=== PATIENT | male | born 1945 | race Caucasian/White ===

== ENCOUNTER 2019-12-16 12:07 | Emergency (ER) | payer OTHER, MEDICARE ==
--- NOTE | 2019-12-16 12:13 | PDOC ---
Rapid Medical Evaluation Time Seen by Provider: 12/16/19 12:08 Medical Evaluation: Allergies Allergy/AdvReac Type Severity Reaction Status Date / Time No Known Drug Allergies Allergy Verified 04/13/14 11:33 12/16/19 12:09 I performed a brief in-person evaluation of this patient. 74 y/o male with concern because his defibrillator was beeping for about a minute or minute and a half. He denies any cp, sob, cough, fevers. He states that his battery was checked abou5t 4-5 months ago and was told it was fine. He states he drank about 3 cups of coffee today. Pertinent physical exam findings: nontoxic, no respiratory distress, speaking in full sentences. I have ordered the following: ekg, labs deferred to treating provider Patient to proceed to ED for further evaluation. Discharge Disposition - Diagnosis Cardiac defibrillator in place - Referrals - Patient Instructions - Post Discharge Activity
[2019-12-16 12:14] VITALS: TEMP 98.3; BMI 29.9
--- NOTE | 2019-12-16 12:53 | PDOC ---
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 He reports that he drank 3 cups of coffee earlier followed by a cup of cognac prior to the defibrillator beeping. He's had it for 5-6 years and was told that the battery should last another 8-9 years. Defibrillator has never discharged or beeped. The patient denies any accompanying chest pain, palpitatons, SOB, nausea, vomiting, abdominal pain. ROS: GENERAL/CONSTITUTIONAL: No weakness. HEAD, EYES, EARS, NOSE AND THROAT: No change in vision. CARDIOVASCULAR: No chest pain or shortness of breath. RESPIRATORY: No cough, wheezing, or hemoptysis. GASTROINTESTINAL: No nausea, vomiting ABDOMINAL: No diarrhea, no constipation MUSCULOSKELETAL: No joint or muscle swelling or pain. No neck or back pain. No peripheral edema. NEUROLOGIC: No headache, loss of consciousness, or change in strength/sensation. HEMATOLOGIC/LYMPHATIC: No history of blood clots, no anemia ENDOCRINE: No sweating, no flushing PMH: HTN, HLD, NC s/p 2-3 stents Meds: Metoprolol, spiranolactone, furosemide, ASA Allergies: Denied Social Hx: Former 3 ppd smoker x 45 years, quit 20 years ago PE: GENERAL: Awake, alert, and fully oriented, in no acute distress HEAD: No signs of trauma, normocephalic EYES: PERRL, no blurry vision NECK: Normal ROM, no JVD, LUNGS: Breath sounds equal, clear to auscultation bilaterally. No wheezes, and no crackles HEART: Regular rate and rhythm, normal S1 and S2, no murmurs, rubs or gallops. Capillary refill <3s. ABDOMEN: Soft, nontender, normoactive bowel sounds. No guarding, no rebound. No masses EXTREMITIES: Normal range of motion, no edema. Peripheral pulses palpable in all extremities MDM: This is a 74 y/o male patient presenting because his defibrillator beeped. He was and currently is asymptomatic, denying CP, palpitations, SOB, n/v, diaphoresis. EKG showing possible anterior lateral infarct age unknown. No recent prior EKG for comparison. Put out call to Dr. Wong. - EKG - CBC - CMP - Cardiac profile - CXR 12/16/19 13:[address] Wilson who is the customer accounts advisor who saw the patient last. He is out of office but is trying to find out who patients pigment processor is. Agrees that defibrillator needs to be interrogated. Patient is unsure who is pigment processor is. - Put out a call to Jonn [phone] from [employer] who has interrogated his defibrillator in the past 12/16/19 14:43 Spoke with [employer] rep Jonn who said someone will be here before 5 to interrogate the device 12/16/19 17:16 - Device was interrogated and the rep said there was "RV lead noise." - Spoke with Dr. Jaycob López office. Report that he has not seen the patient in over 5 years but implanted it. He received the interrogation report. Dr. Shook will reach out to the patient tomorrow morning. Patient knows to follow-up with Dr. Shook's office and to see him in 24-48 hours of leaving. 12/16/19 18:01 12/16/19 18:12 Past History - Medical History Allergies/Adverse Reactions: Allergies Allergy/AdvReac Type Severity Reaction Status Date / Time No Known Drug Allergies Allergy Verified 12/16/19 12:13 Home Medications: Ambulatory Orders Aspirin [ASA -] 81 mg PO DAILY 03/28/14 Atorvastatin Ca [Lipitor] 40 mg PO HS #30 tablet 03/30/14 Furosemide [Lasix -] 40 mg PO DAILY #30 tablet 03/30/14 Metoprolol Succinate [Toprol Xl] 50 mg PO DAILY #30 tab.sr.24h 03/30/14 Spironolactone [Aldactone] 25 mg PO DAILY #30 tablet 03/30/14 Anemia: No Asthma: No Cancer: No Cardiac Disorders: Yes CVA: No COPD: No CHF: No Dementia: No Diabetes: No GI Disorders: No Disorders: No HTN: Yes Hypercholesterolemia: No Liver Disease: No Seizures: No Thyroid Disease: No - Surgical History Abdominal Surgery: No Appendectomy: No Cardiac Surgery: Yes Cholecystectomy: No Lung Surgery: (CARDIAC STENT X2 1998) Neurologic Surgery: No Orthopedic Surgery: No - Psycho-Social/Smoking History Smoking History: Former smoker Have you smoked in the past 12 months: No If you are a former smoker, when did you quit?: 15 yrs ago Information on smoking cessation initiated: No 'Breaking Loose' booklet given: 03/28/14 - Substance Abuse Hx (Audit-C & DAST Scrn) How often the patient has a drink containing alcohol: Monthly or less Number of drinks the patient has on a typical day: 1 or 2 How often the patient has six or more drinks on one occasion: Never Score: In Men: 4 or > Positive; In Women: 3 or > Positive: 1 Screen Result (Pos requires Nsg. Audit-10AR): Negative In the last yr the pt used illegal drug/Rx for NonMed reason: No Score: Yes response is considered Positive: 0 Screen Result (Positive result requires Nsg. DAST-10): Negative *Physical Exam - Vital Signs Last Vital Signs Temp Pulse Resp BP Pulse Ox 98.3 F 65 17 135/80 97 12/16/19 12:10 12/16/19 12:10 12/16/19 12:10 12/16/19 12:10 12/16/19 12:10 Heart Score/ECG Review - History History: Slightly suspicious - Electrocardiogram EKG: Non specific repolarization disturbance - Age Age: >/= 65 - Risk Factors Risk Factors Heart Score: Yes Hx Hypercholesterolemia, Yes Hx Hypertension, Yes Smoking History Based on the list above the patient has:: >/=3 risk factors or Hx atherosclerotic disease - Troponin Troponin: </= normal limit - Score Heart Score - Total: 5 - ECG Intrepretation Comment:: 12/16/19 13:52 Normal sinus rhythm, possible left atrial enlargement, anterolateral infarct age undetermined Vent rate 67bpm, NC interval 150ms, QRS duration 124ms, QT/QTc 426/450ms ED Treatment Course - LABORATORY CBC & Chemistry Diagram: 12/16/19 12:26 12/16/19 12:26 Discharge - Discharge Information Problems reviewed: Yes Clinical Impression/Diagnosis: Cardiac defibrillator in place, Palpitations Condition: Stable Disposition: HOME - Follow up/Referral Referrals: Jaycob Shook [Non Staff, Medical] - Call tomorrow - Patient Discharge Instructions Patient Printed Discharge Instructions: DI for Palpitations Additional Instructions: You were seen in the ED today because your defibrillator was making noises. We did a physical exam, and ran labs. [employer] came to interrogate your device. You were given a printout of the interrogation report and a copy was sent to Dr. Shook. You were given a referral to see Dr. Jaycob Shook, the pigment processor who implanted your device. Dr. Shook will call you tomorrow morning. You can also call his office at [phone]. You need to make an appointment to see Dr. Shook within the next 48 hours. Please return to the ED with and new or worsening symptoms. - Post Discharge Activity
[2019-12-16 13:13] LABS: BASO % 0.7 % (0-2.0); EOS % 1.1 % (0-4.5); HEMATOCRIT 48.3 % (35.4-49); HEMOGLOBIN 15.5 GM/dL (11.7-16.9); LYMPH % 12.3 % (8-40); MCH 28.9 pg (25.7-33.7); MCHC 32.1 g/dl (32.0-35.9); MEAN CELL VOLUME 90.1 fl (80-96); MEAN PLT VOLUME 8.3 fl (7.5-11.1); MONO % 5.1 % (3.8-10.2); NEUT % 80.8 % (42.8-82.8); PLATELET COUNT 184 K/MM3 (134-434); RBC 5.36 M/mm3 (4.00-5.60); RDW 15.1 % (11.9-15.9); WHITE BLOOD COUNT 11.9 K/mm3 (4.0-10.0)
[2019-12-16 13:25] LABS: INR 1.07 (0.83-1.09); PROTHROMBIN TIME (PATIENT) 12.6 SEC (9.7-13.0)
[2019-12-16 13:28] LABS: ACTIVATED PTT 32.1 SECONDS (25.2-36.5)
[2019-12-16 13:35] LABS: ALBUMIN 3.5 g/dl (3.4-5.0); BLOOD UREA NITROGEN 16.8 mg/dL (7-18); CALCIUM 8.9 mg/dL (8.5-10.1); POTASSIUM 3.8 mmol/L (3.5-5.1)
[2019-12-16 13:41] LABS: BILIRUBIN,TOTAL 0.7 mg/dL (0.2-1); CREATININE 1.2 mg/dL (0.55-1.3); TOT PROT 6.8 g/dl (6.4-8.2)
[2019-12-16 16:46] VITALS: BP 149/89; PULSE 92
--- NOTE | 2019-12-17 15:46 | PDOC ---
Documentation entered by Sujata Atwood SCRIBE, acting as scribe for Rhianna Doty MD. Rhianna Doty MD: This documentation has been prepared by the Angelic holley Xhesika, SCRIBE, under my direction and personally reviewed by me in its entirety. I confirm that the documentation accurately reflects all work, treatment, procedures, and medical decision making performed by me. Attending Attestation - Resident Resident Name: Jossy Rosen - ED Attending Attestation I have performed the following: I have examined & evaluated the patient, The case was reviewed & discussed with the resident, I agree w/resident's findings & plan, Exceptions are as noted - HPI HPI: 12/16/19 13:15 The patient is a 74y/o M with a PMH of HTN, HLD, NE s/p 2-3 stents 20 years ago who presents to the ED because his defibrillator beeped for 2 minutes. Pt states he has had his defibrillator for 5-6 years. He reports that a recent interrogation of the defibrillator showed it was functioning normal with good battery. Pt states he has never had any issues/ problems with his defibrillator before. Pt denies any complaints while in the ED and has not heard beeping since. He does not remember the name of his EP. Allergies: NKDA PCP: Dr. Conner Arnold - Physicial Exam PE: GENERAL: Awake, alert, and fully oriented, in no acute distress HEAD: No signs of trauma EYES: PERRLA, EOMI, sclera anicteric, conjunctiva clear ENT: Auricles normal inspection, hearing grossly normal, nares patent, oropharynx clear without exudates. Moist mucosa NECK: Normal ROM, supple, no lymphadenopathy, JVD, or masses LUNGS: Breath sounds equal, clear to auscultation bilaterally. No wheezes, and no crackles HEART: Regular rate and rhythm, normal S1 and S2, no murmurs, rubs or gallops ABDOMEN: Soft, nontender, normoactive bowel sounds. No guarding, no rebound. No masses EXTREMITIES: Normal range of motion, no edema. No clubbing or cyanosis. No cords, erythema, or tenderness BACK: No midline spinal tenderness in cervical/thoracic/lumbar region NEUROLOGICAL: Normal speech, cranial nerves intact, negative pronator drift, 5/5 strength in all 4 extremities, normal sensation to light touch in all 4 extr emities, normal cerebellar exam, normal gait, normal reflexes and tone SKIN: Warm, Dry, normal turgor, no rashes or lesions noted. - Medical Decision Making 74yo M presents to the ED after defibrillator beeped for 2 mins. Pt asymptomatic and well appearing [employer] rep interrogated defibrillator, found there was RV lead noise which is likely what caused the peeping. Case discussed by Dr. Rosen with Dr. Shook who states that RV lead noise does not require emergent evaluation and that pt can f/u with him within 24-48 hours Plan discussed with pt, who continues to be asymptomatic He will call to make f/u appt with Dr. Shook within 24-48 hours REturn precautions discussed. I discussed the physical exam findings, ancillary test results and final diagnoses with the patient. I answered all of the patient's questions. The patient was satisfied with the care received and felt comfortable with the discharge plan and treatment plan. The patient will call their primary care physician within 24 hours to arrange follow-up and will return to the Emergency Department with any new, persistent or worsening symptoms. This clinical encounter is taking place during a federal and state health care emergency attributable to the novel Kim Virus pandemic. The [place] of the Department of Health and Human Services has declared, pursuant to the Public Health Service Act 319F-3 (42 U.S.C. 247d-6d), that a covered persons activities related to medical countermeasures against COVID-19 will be immune from liability under Federal and State law. Discharge - Discharge Information Problems reviewed: Yes Clinical Impression/Diagnosis: Cardiac defibrillator in place Condition: Stable Disposition: HOME - Follow up/Referral Referrals: Jaycob Shook [Non Staff, Medical] - Call tomorrow - Patient Discharge Instructions Patient Printed Discharge Instructions: DI for Palpitations Additional Instructions: You were seen in the ED today because your defibrillator was making noises. We did a physical exam, and ran labs. [place] came to interrogate your device. You were given a printout of the interrogation report and a copy was sent to Dr. Shook. You were given a referral to see Dr. Jaycob Shook, the manager switch who implanted your device. Dr. Shook will call you tomorrow morning. You can also call his office at [phone]. You need to make an appointment to see Dr. Shook within the next 48 hours. Please return to the ED with and new or worsening symptoms. - Post Discharge Activity
--- NOTE | 2019-12-19 11:29 | EKG ---
Test Reason : Blood Pressure : / mmHG Vent. Rate : 067 BPM Atrial Rate : 067 BPM P-R Int : 150 ms QRS Dur : 124 ms QT Int : 426 ms P-R-T Axes : 061 261 075 degrees QTc Int : 450 ms POOR DATA QUALITY, INTERPRETATION MAY BE ADVERSELY AFFECTED NORMAL SINUS RHYTHM POSSIBLE LEFT ATRIAL ENLARGEMENT ANTEROLATERAL INFARCT (CITED ON OR BEFORE 16-DEC-2019) ABNORMAL ECG WHEN COMPARED WITH ECG OF 28-MAR-2014 14:02, SERIAL CHANGES OF ANTERIOR INFARCT PRESENT Confirmed by LUIS DOMINGUEZ MD ([id number]) on 12/19/2019 11:28:52 AM Referred By: Confirmed By:LUIS DOMINGUEZ MD
== END 2019-12-16 17:35 | disposition home or self-care (01) ==
LOC: JER 12:07
DX: R00.2 Palpitations (principal); Z95.810 Presence of automatic (implantable) cardiac defibrillator
CPT/HCPCS: 36415; 71046-TC-FY; 80053; 82550; 83735; 84484; 85025; 85610; 85730; 93005; 93010; 99285-25